=== PATIENT | female | born 1955 | race Caucasian/White ===

== ENCOUNTER 2020-08-23 09:13 | Observation (INO) | payer OTHER ==
[2020-08-20 15:44] LABS: BASOPHILS % (AUTO) 1 % (0-1); EOSINOPHILS % (AUTO) 7 % (1-7); LYMPHOCYTES % (AUTO) 33 % (22-44); MEAN CORPUSCULAR HEMOGLOBIN 31.2 pg (27.0-34.8); MEAN CORPUSCULAR HGB CONC 32.7 g/dL (32.4-35.8); MEAN PLATELET VOLUME 8.8 fL (7.4-10.4); MONOCYTES % (AUTO) 10 % (2-9); NEUTROPHILS % (AUTO) 49 % (42-75); PLATELET COUNT 274 x10^3/uL (130-400); RED BLOOD COUNT 4.29 x10^6/uL (3.82-5.3); RED CELL DISTRIBUTION WIDTH 12.8 % (9.6-15.2)
[2020-08-20 15:45] LABS: MD NO
[2020-08-20 15:46] LABS: MICROSCOPIC AUTO
[2020-08-20 15:49] LABS: ALANINE AMINOTRANSFERASE 37 U/L (12-78); ALBUMIN 4.2 g/dL (3.4-5.0); ANION GAP 7 mmol/L (5-15); CALCIUM 9.5 mg/dL (8.5-10.1); CHLORIDE 105 mmol/L (98-107); CREATININE 0.79 mg/dL (0.55-1.02)
[2020-08-20 15:52] LABS: ALKALINE PHOSPHATASE 93 U/L (45-117); BILIRUBIN,TOTAL 0.7 mg/dL (0.2-1.0); TOTAL PROTEIN 7.8 g/dL (6.4-8.2)
[~2020-08-23] VITALS: Ht 162.6 cm; Wt 72.8 kg
[~2020-08-23 09:13] MED LIST: ATOR40TA78 PO; CO Q10 PO; EPINEPHRINE 1 MG/ML, 1ML ONE; FLUORESCEIN SODIUM 500 MG/5 ML ONE; FUROSEMIDE 20 MG/2 ML ONE; INDIGO CARMINE 0.8%, 5ML ONE; LEVO25TA4 PO; LIDOCAINE/PF 1%, 30ML ONE; LIDOCAINE/PF 1%-EPI 1:200K, 30 ML ONE; LOSA50TA14 PO; METHYLENE BLUE 50 MG/10 ML AMP ONE; MULT-752 PO; NEOMY/POLYMYXIN B GU IRR. 1 ML ONE; OMEP40CA42 PO
[2020-08-23] MEDS ORDERED: CHLORHEXIDINE 15 ML UDC ONE (10:04)
[2020-08-23] MEDS ORDERED: MIDAZOLAM 1 MG/ML, 2ML ONE (10:18)
[2020-08-23] MEDS ORDERED: FENTANYL PF 100 MCG/2ML ONE (10:18)
[2020-08-23] MEDS ORDERED: DEXAMETHASONE 4 MG/ML, 1ML ONE (10:25)
[2020-08-23] MEDS ORDERED: ONDANSETRON 2MG/ML, 2ML ONE (10:25)
[2020-08-23] MEDS ORDERED: PROPOFOL 10 MG/ML, 20ML ONE (10:25)
[2020-08-23] MEDS ORDERED: KETOROLAC 30 MG/1 ML ONE (10:25)
[2020-08-23] MEDS ORDERED: CEFAZOLIN 1,000 MG ONE (10:25)
[2020-08-23] MEDS ORDERED: ACETAMINOPHEN 325 MG TABLET PO PRN (10:30)
[2020-08-23] MEDS ORDERED: FENTANYL PF 100 MCG/2ML IV PRN (10:30)
[2020-08-23] MEDS ORDERED: CHLORHEXIDINE 15 ML UDC PO ONE (10:30)
[2020-08-23] MEDS ORDERED: OXYcodone 5 MG/5 ML ORAL.SOL UDC PO PRN (10:30)
[2020-08-23] MEDS ORDERED: ONDANSETRON 2MG/ML, 2ML IVPush PRN (10:30)
[2020-08-23] MEDS ORDERED: HYDROmorphone 1 MG/ML, 1ML INJ IVPush PRN (10:30)
[2020-08-23] MEDS ORDERED: DIPHENHYDRAMINE 50 MG/ML, 1ML IVPush PRN (10:30)
[2020-08-23] MEDS ORDERED: DIAZEPAM 5 MG/ML, 2ML IVPush PRN (10:30)
[2020-08-23] MEDS ORDERED: MEPERIDINE/PF 25MG/0.5ML IVPush PRN (10:30)
[2020-08-23] MEDS ORDERED: PROMETHAZINE 25 MG/ML, 1ML IVPush PRN (10:30)
[2020-08-23] MEDS ORDERED: LACTATED RINGERS 1,000 ML IV SCH (10:30)
[2020-08-23 12:45] VITALS: BP 126/75
[2020-08-23] MEDS: LACTATED RINGERS 1,000 ML IV SCH ×2 (13:00→19:53)
[2020-08-23] MEDS: HYDROcodone/APAP 5/325 TABLET PO PRN ×2 (16:13→20:55)
[2020-08-23] MEDS: OMEPRAZOLE 20 MG CAPSULE.DR PO SCH (19:51)
[2020-08-23 20:03] VITALS: BP 108/58
[2020-08-24 00:20] VITALS: BP 99/62
[2020-08-24] MEDS: LACTATED RINGERS 1,000 ML IV SCH (03:58)
[2020-08-24 04:38] VITALS: BP 121/68
[2020-08-24] MEDS ORDERED: LEVOTHYROXINE 25 MCG TABLET PO SCH (06:00)
[2020-08-24] MEDS ORDERED: OMEPRAZOLE 20 MG CAPSULE.DR PO SCH (06:00)
[2020-08-24] MEDS: OMEPRAZOLE 20 MG CAPSULE.DR PO SCH (06:10)
[2020-08-24 07:05] VITALS: BP 112/60
[2020-08-24] MEDS ORDERED: LOSARTAN 50MG TABLET PO SCH (09:00)
[2020-08-24] MEDS ORDERED: HYDR-1067 PO (09:45)
[2020-08-24] MEDS: HYDROcodone/APAP 5/325 TABLET PO PRN (10:03)
== END 2020-08-24 11:00 | disposition home or self-care (01) ==
LOC: OUT 09:13 → 4NE 12:41 → OUT 14:46 → DCLOUNGE 08-24 10:56
PROVIDERS: ADMIT Obstetrics & Gynecology Gynecology; ATTEND Obstetrics & Gynecology Gynecology
DX: N81.11 Cystocele, midline (principal); N39.3 Stress incontinence (female) (male); Z20.822 Contact with and (suspected) exposure to COVID-19; I10 Essential (primary) hypertension; E78.5 Hyperlipidemia, unspecified; K21.9 Gastro-esophageal reflux disease without esophagitis; Z79.899 Other long term (current) drug therapy
CPT/HCPCS: 36415; 57240; 57288; 71046; 80053; 81001; 85025; 93005; C1771; G0378; J0171; J0690; J1100; J1885; J2250; J2405; J2704; J3010; J3490; J7120; Q9968; U0003; J1940